=== PATIENT | female | born 1975 | race Caucasian/White ===

== ENCOUNTER → 2018-04-03 | Outpatient (CLI) | payer OTHER ==
[2018-04-03 19:55] LABS: Total Protein,CSF 44 mg/dL (12-60)
[2018-04-03 20:28] LABS: Appearance,CSF Clear; CSF Tube Number 4
[2018-04-03 20:29] LABS: CSF Tube Volume 4; Nucleated Cells, CSF 3 u/L (0-5); Red Blood Cell,CSF 2 u/L (0-10)
== END ==
LOC: MERGE 09:53 → LABWHC1 09:53
PROVIDERS: ATTEND Psychiatry & Neurology Neurology
DX: R90.89 Other abnormal findings on diagnostic imaging of central nervous system (principal)
CPT/HCPCS: 36415; 82040; 82042; 82784; 83873; 83916; 84157; 87476; 89050